=== PATIENT | male | born 1990 | race Two or more races ===

== ENCOUNTER → 2018-10-14 08:50 | Outpatient (CLI) | payer OTHER, SELFPAY ==
[2018-10-14 08:38] VITALS: BMI 21.2
--- NOTE | 2018-10-14 08:55 | RAD_ITS ---
STUDY: X-RAY CHEST REASON FOR EXAM: Male, 28 years old. Chest congestion and cough. Fever. TECHNIQUE: PA and lateral views of the chest. COMPARISON: None. FINDINGS: The lungs are clear and expanded. Scattered calcified granulomas. There is no demonstrated pleural abnormality. Normal size heart. Normal mediastinum and uday. Normal visualized pulmonary arteries. Normal visualized aortic arch and descending thoracic aorta. Normal visualized thoracic spine. Normal visualized ribs, clavicles, and shoulders. There is no demonstrated abnormality of the visualized soft tissue structures of the upper abdomen. RAD/Chest PA and Lateral IMPRESSION: Normal x-ray examination of the chest. Electronically Signed: Fabian Giles MD at 10:19 EST Tel [phone], Service support ,
== END ==
PROVIDERS: Family Provider Family Medicine; PCP Family Medicine; Referring Provider Physician Assistant Surgical; Visit Provider Physician Assistant Surgical
DX: J20.9 Acute bronchitis, unspecified (principal)
CPT/HCPCS: 71046

== ENCOUNTER 2018-10-30 18:30 | Outpatient (RCR) | payer OTHER, SELFPAY ==
--- NOTE | 2018-09-11 18:37 | HP.PTEVAL_ITS ---
Patient's Visit Information FREDY NIÑO is a 28 year old M referred to Physical Therapy by Jamil Beard with a diagnosis of Foot pain. Date of Evaluation: 09/11/18 Physical Therapist: Star Denton DPT, OC - Visit Plan Frequency: one more visit Plan: call when orthotics in and fit to shoe and educate in use. - Subjective Subjective: Foot pain after on feet all day at work. Heel and metatarsal. Pain gets to 5/10. Goes away within the evening. Has high arches. 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 - Pain B heel pain Pain Intensity (Out of 10): 0 Pain Intensity Range: 0, 6 - Objective Pes cavus B in standing, no LLD. No other biomechanical abnormalities in foot. AROM ankles full and without pain. Strength 5/5 in DF and PF. Walks normal and without antalgia today. - Goals Goal 1:: fit for and I in the use of custom orthotics. Goal Time Frame: 2-4 Weeks - Rehabilitation Potential Physical Therapy Diagnosis: foot pain, hypersupinated forefoot. Rehabilitation Potential: Good - Anticipated Interventions Patient/Client Instruction: Educate patient on: Condition Comments: orthotics. For the Purpose of:: To decrease pain Orthotics: Shoe insert For the Purpose of:: To decrease pain Thank you for the opportunity to evaluate your patient. For Medicare and Medicare HMO plans, please review the plan of care and approve it. It will need to be FAXED BACK to us at [phone] for Medicare purposes. Please let me know if there are questions or concerns regarding this plan of care. Physician Signature: Date:
--- NOTE | 2018-10-30 18:12 | HP.PTDCSUM ---
HP - PT D/C Summary It has been my pleasure to treat FREDY NIÑO under orders from Jamil Beard, for the diagnosis of Foot pain for a total of 1 visit(s). Discharge Date: 10/30/18 Please see the following information for a summary of their discharge status. - Pain B heel pain Pain Intensity (Out of 10): 0 - Goals Goal 1:: fit for and I in the use of custom orthotics. Goal Progress: Goal Met - Plan Plan: call when orthotics in and fit to shoe and educate in use. - D/C Information Discharge Comments: Got orthotics and will call if problems or concerns. If there are questions or concerns regarding this patient's physical therapy, please feel free to call me at [phone]. Thank you for the referral of this patient. Sincerely, Star Denton, DPT, OC
== END 2018-10-30 19:00 | disposition home or self-care (01) ==
LOC: PT 18:30
PROVIDERS: Family Provider Family Medicine; PCP Family Medicine; Visit Provider Family Medicine
DX: M79.673 Pain in unspecified foot (principal); M21.6X9 Other acquired deformities of unspecified foot
CPT/HCPCS: 97161; 97760

== ENCOUNTER → 2020-05-09 | Outpatient (CLI) | payer OTHER, SELFPAY ==
[2019-03-19 13:21] VITALS: BMI 21.2
[2020-05-09 17:11] LABS: NATERA MAILED SPECIMEN
== END | disposition home or self-care (01) ==
LOC: LABSPEC 16:08
PROVIDERS: PCP Family Medicine; Referring Provider Obstetrics & Gynecology; Visit Provider Obstetrics & Gynecology
DX: Z31.440 Encounter of male for testing for genetic disease carrier status for procreative management (principal)
CPT/HCPCS: 36415

== ENCOUNTER 2020-10-27 14:46 | Outpatient (RCR) | payer OTHER, SELFPAY ==
[2019-03-19 13:21] VITALS: BMI 21.2
== END 2020-11-24 23:59 ==
LOC: EMPH 14:46
PROVIDERS: PCP Family Medicine; Visit Provider Family Medicine Geriatric Medicine
DX: Z03.818 Encounter for observation for suspected exposure to other biological agents ruled out (principal)
CPT/HCPCS: 87426

== ENCOUNTER → 2021-07-27 18:45 | Outpatient (CLI) | payer BC, SELFPAY ==
--- NOTE | 2021-07-27 19:00 | RAD_ITS ---
STUDY: X-RAY - RIGHT ELBOW REASON FOR EXAM: Male, 31 years old. pain unspecified injury to right elbow. generalized pain and swelling. TECHNIQUE: 3 view(s) of the elbow. COMPARISON: None. FINDINGS: Normal visualized humerus, radius and ulna. Normal radiocapitellar and ulnotrochlear articulations. Appearance of mild soft tissue swelling in the posterior and distal aspect of the upper arm. There is no demonstrated fracture. RAD/Elbow min 3 Views IMPRESSION: 1. Appearance of mild soft tissue swelling in the posterior and distal aspect of the upper arm. Electronically Signed: Valentino Saba MD at 20:26 EDT , Service support ,
== END ==
PROVIDERS: PCP Family Medicine; Visit Provider Physician Assistant
DX: S59.901A Unspecified injury of right elbow, initial encounter (principal)
CPT/HCPCS: 73080

== ENCOUNTER → 2023-05-17 | Outpatient (CLI) | payer BC, SELFPAY ==
--- NOTE | 2023-05-17 18:15 | US_ITS ---
We are attempting to reach an attending provider to discuss findings. An addendum with communication details will be sent when the communication is complete. INDICATION: LT LUMP EXAMINATION: Ultrasound US Scrotum (Contents) TECHNIQUE: Realtime ultrasound of the testicles was performed with grayscale, Color Doppler and spectral Doppler analysis. COMPARISON: FINDINGS: RIGHT: TESTIS: 4.8 x 2.9 x 1.9 cm. Normal in size and echotexture, without focal lesion. COLOR DOPPLER: Normal Doppler flow within the right testicle. EPIDIDYMIS: Normal in size and echotexture, without focal lesion. [Normal color Doppler flow pattern in the epididymis. HYDROCELE: Minimal, with a thin internal septation. VARICOCELE: Mild right varicocele. LEFT: TESTIS: 4.7 x 3.7 x 2.3 cm. Left testicle contains a rounded complex though primarily solid mass which shows internal blood flow and with surrounding hyperemia; this left intratesticular mass measures 2.7 x 3.4 x 2.2 cm. COLOR DOPPLER: Doppler flow is present within the left testicle, without evidence for torsion. EPIDIDYMIS: Normal in size and echotexture, without focal lesion. [Normal color Doppler flow pattern in the epididymis. HYDROCELE: Small VARICOCELE: Present. US/Testicular with Arterial Flow IMPRESSION: 3.4 cm solid mass within the left testicle, highly suspicious for testicular neoplasm. No findings of testicular torsion or acute epididymitis. Nonstandard communication protocol initiated. Electronically Signed: Jaiden Evans MD at 19:11 EDT ,
== END | disposition home or self-care (01) ==
PROVIDERS: PCP Family Medicine; Referring Provider Family Medicine; Visit Provider Family Medicine
DX: N50.89 Other specified disorders of the male genital organs (principal)
CPT/HCPCS: 76870; 93976

== ENCOUNTER → 2023-05-21 | Outpatient (CLI) | payer BC, SELFPAY ==
[2023-05-21 09:18] LABS: Absolute Lymphocyte Count 1.59 X10^3/uL (0.83-4.51); Absolute Neutrophil Count 3.3 X10^3/uL (2.0-7.7); Basophil# 0.09 X10^3/uL; Basophil% 1.6 % (0-1); Eosinophil# 0.21 X10^3/uL; Eosinophils% 3.7 % (0-5); Hematocrit 43.3 % (40-54); Hemoglobin 14.9 g/dL (13.0-16.5); Lymphocyte # 1.59 X10^3/ul (0.83-4.51); Mean Corp Hgb Conc 34.4 g/dL (32-36); Mean Corpuscular Hgb 30.4 pg (27.0-32.0); Mean Corpuscular Volume 88.4 fL (80-94); Mean Platelet Vol. 9.5 fl (6.2-12.0); Monocyte# 0.48 X10^3/uL; Monocyte% 8.5 % (0-10); NRBC Flagged by Analyzer 0 % (0-5); Neutrophil # 3.29 X10^3/uL (2.7-7.7); Platelet Count 309 K/mm3 (150-450); RBC Distribution Width CV 11.8 % (11.6-14.6); RBC Distribution Width SD 37.5 fl (35.1-43.9); White Blood Count 5.7 K/mm3 (4.4-11.0)
[2023-05-21 09:49] LABS: Anion Gap 6 (5-15); BUN 14 mg/dL (7-18); BUN/Creat Ratio 13.1 RATIO (10-20); Calcium,Total 8.7 mg/dL (8.5-10.1); Chloride 108 mmol/L (98-107); Creatinine, Serum 1.07 mg/dL (0.70-1.30); EST Glomerular Filtration Rate 86 mL/min (>60); Est Glom Filt Rate - Afr Amer 104 mL/min (>60); Glucose 144 mg/dL (74-106); LDH 279 U/L (87-241); Sodium Level 139 mmol/L (136-145)
[2023-05-22 04:45] LABS: HCG BETA-SUBUNIT QUANT. 15 mIU/mL (0-3)
== END | disposition home or self-care (01) ==
LOC: LAB 08:43
PROVIDERS: PCP Family Medicine; Referring Provider Urology; Visit Provider Urology
DX: C62.12 Malignant neoplasm of descended left testis (principal)
CPT/HCPCS: 36415; 80048; 82105; 83615; 84702; 85025

== ENCOUNTER → 2023-05-24 | Outpatient (CLI) | payer BC, SELFPAY ==
--- NOTE | 2023-05-24 | TEST_PTH ---
PATIENT: FREDY NIÑO LOC: [facility] U#:[id number] AGE/SX: 33/M ROOM: RE05/24/[address]: Dr. Korey Espinoza MD : 1990 BED: DIS: 05/24/2023 SPEC #: [id number] RECD: 05/27/23 12:52 STATUS: SANDRA REQ #: [id number] SHEREEN: 05/24/23 00:[address]: Korey Espinoza DEPT: SURGICAL PATHOLOGY RECD BY: Don Montanez ENTERED: 05/27/23 12:52 SP TYPE: TESTICLE OTHR DR: Dr. 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 See cancer summary in the comment section. SJ: 06/04/2023 COMMENT TESTIS - RADICAL ORCHIECTOMY CANCER SUMMARY: Specimen type - radical orchiectomy Specimen laterality - left. Tumor focality - uniffocal Tumor Size - 3.5 x 3.5 x 3.0 cm Additional tumor nodules - not identified. Histologic type - non-seminonatous type- Mixed germ cell tumor Embryonal carcinoma - 60% Yolk sac tumor - 30% Teratoma 10%. Tumor extension - tumor limited to testis Margins: Spermatic cord margin - free of tumor Other margins - uninvolved by tumor Lymphvascular invasion - not identified. Regional lymph nodes: No lymph nodes submitted or found. Distant metastasis - not applicable. Serum tumor markers: AFP - 197 (N- 0.0 to 6.9ng/ml) HCG - 15 (N - 0-3 mIU/ml) LDH - 279 (N - 87-241 U/L) Additional pathologic findings - focal atrophy seminiferous tubules. PATHOLOGIC STAGE: pT1b Nx Mx S1 The above summary is in compliance with [employer] (CAP) Cancer Protocols Checklist and [place] Joint Committee on Cancer (AJCC), Staging Manual, 8th Ed. The specimen sent to [facility] for expert opinion and reviewed by Dr. Seo and above diagnosis is rendered. The complete report is viewable in patient's EMR. Case has been reviewed in consultation with Dr. Mendez who concurs with the above diagnosis. IDC:AM MICROSCOPIC DESCRIPTION Slides are reviewed. GROSS DESCRIPTION Received in fixative is one container labeled with the patient's name and designated left testicle. The specimen consists a radical orchiectomy specimen weighing 71 gm. The testicle measures 8.0 x 5.0 x 4.0 cm. Attached spermatic cord measures 3.5 cm in length and up to 2.0 cm in diameter. The external surface is inked black. Sections of the testicle reveal a round, woods, focally hemorrhagic mass measuring 3.5 x 3.5 x 3.0 cm. The mass appears to be confined to testicle. Invasion through the tunica vaginalis or albuginea is not seen. School Photographer sections are submitted as follows: 1 - resection margin of spermatic cord, 2 & 3 - more sections of spermatic cord. More sections will be submitted after additional fixation. / FLORIN:rick 05/27/2023 Additional sales representative aircraft sections are submitted as follows: 4-9 - tumor (cassette 4 also contains the tunica vaginalis and tunica albuginea, 8 also contains adjacent epididymis, 9 contains tumor adjacent testicular tissue), 10 - uninvolved testicular tissue. / FLORIN:rick 05/29/2023 TC:0 CPT:85078
== END | disposition home or self-care (01) ==
LOC: LABSPEC 16:04
PROVIDERS: PCP Family Medicine; Referring Provider Urology; Visit Provider Urology
DX: Z30.2 Encounter for sterilization (principal)
CPT/HCPCS: 88309

== ENCOUNTER → 2023-06-05 | Outpatient (CLI) | payer BC, SELFPAY ==
--- NOTE | 2023-06-05 18:35 | CT_ITS ---
STUDY: CT CHEST, ABDOMEN T PELVIS WITH CONTRAST REASON FOR EXAM: Male, 33 years old. MALIGNANT NEOPLASM OF LT TESTES. The patient is status post left orchiectomy. RADIATION DOSAGE (If Supplied By Facility): CTDIvol = ( 13.90 ) mGy, DLP = ( 1461.36 ) mGycm TECHNIQUE: Transaxial imaging was performed following intravenous administration of Oral and amp; IV Readi-CAT and amp; 100mL Isovue-370. Multiplanar coronal and sagittal images were reformatted. Individualized dose optimization techniques were used for this CT. COMPARISON: No relevant priors. FINDINGS: CHEST Small benign appearing bilateral axillary lymph nodes. 4 mm noncalcified nodule in the right lower lobe adjacent to the right hemidiaphragm as seen on axial image #95. There is no demonstrated pleural abnormality. Normal heart and pericardium. Normal mediastinum. Normal hilar regions. Normal unenhanced pulmonary arteries. Normal aorta arch and descending thoracic aorta. Normal osseous structures. There is no demonstrated abnormality of the visualized upper abdomen. ABDOMEN Normal liver. Normal gallbladder and extrahepatic biliary system. Normal spleen. Normal pancreas. Normal bilateral adrenal glands. Normal right kidney. Normal left kidney. Normal visualized stomach. Normal small intestine. Normal colon. The appendix is visualized and appears normal. Small lymph nodes are seen in the mesenteric fat in the right lower quadrant suggestive for mesenteric adenitis. Normal abdominal aorta. Normal inferior vena cava. There is a 1.8 cm by 2.2 cm well-defined rounded hypodense nodule in the left retroperitoneum adjacent to the aorta just distal to the left renal hilum. This most likely represents a lymph node. There is a small umbilical hernia containing fat. Normal osseous structures. PELVIS Normal urinary bladder. Normal visualized small intestine. Normal visualized colon. There is no pelvic fluid. There is no pelvic lymphadenopathy or mass lesion. Normal visualized pelvic arteries. Normal abdominal wall. Normal osseous structures. CT/CT Chest, Abd, Pel w/Contrast IMPRESSION: 4 mm noncalcified nodule in the right lower lobe adjacent to the right hemidiaphragm and adjacent axial images #95. Twelve-month follow-up examinations recommended. 1.8 cm x 2.2 cm well-defined rounded hypodense lung in the left retroperitoneum adjacent to the left side of the aorta just distal to the left renal hilus. This may represent a small lymph node. Electronically Signed: Fabian Giles MD at 8:55 EDT ,
== END | disposition home or self-care (01) ==
LOC: CT 18:32
PROVIDERS: PCP Family Medicine; Referring Provider Family Medicine; Visit Provider Family Medicine
DX: C62.92 Malignant neoplasm of left testis, unspecified whether descended or undescended (principal)
CPT/HCPCS: 71260; 74177; Q9967

== ENCOUNTER 2023-06-14 09:24 | Day surgery (SDC) | payer BC, SELFPAY ==
[2023-06-14] VITALS (7 sets, daily range): BP systolic 87–120; BP diastolic 59–74; PULSE 62–79; RESP 14–18; TEMP 36.1–36.4; O2SAT 94–100; BMI 25.2
--- NOTE | 2023-06-14 09:54 | PCM.HP.BLA ---
History and Physical Date of Admission: 06/14/23 Date of Service: 06/13/23 MR#: [id number] Acct: [id number] Name: FREDY NIÑO Rep #: [id number] : 1990 Provider: Dr. 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 Complaint: Port Placement Director Pharmacovigilance Required: No Accompanied by: Is patient in pain?: No Allergies No Known Allergies Allergy (Verified 06/13/23 10:16) Medications escitalopram oxalate 20 mg tablet 20 mg PO DAILY 06/06/23 [History Confirmed 06/13/23] PFSH Medical History Alcohol use Anxiety Cancer Cellulitis of right elbow Heartburn Injury of right elbow Left testicular cancer, primary Lung nodule Non-smoker Regional lymph node metastasis present Restless legs Surgical History History of repair of ACL History of tonsillectomy and adenoidectomy Hx of removal of testicle Family History Father Arthritis HypertensionMother Thyroid disorder Social History Smoking Status: Never smoker alcohol intake: never HPI HPI HPI: 33-year-old male who presents for port placement due to testicular cancer with regional lymph node metastasis. Patient is planning to start chemotherapy . ROS General General: No weight change, appetite, fatigue, colon cancer, breast cancer or weakness HEENT HEENT: No difficulty swallowing, eye injury, eye surgery, swollen glands or hoarseness Endo Endocrine: No thyroid disease, diabetes mellitus, thyroid cancer, Hair loss, heat intolerance or cold intolerance Skin Skin: No rash or changing moles Breast Breast: No left breast lump, right breast lump, nipple discharge, breast pain, abnormal mammogram, abnormal US or breast enlargement Musc Musculoskeletal: No back problems, arthritis, rheumatoid arthritis, gout or joint pain Cardio Cardiovascular: No murmur, pacemaker, heart disease, atrial fibrillation, high blood pressure, heart attack, heart stent, palpitations, shortness of breat with exertion or chest pain Psych Psychiatric: Yes anxiety; No depression or hearing voices Resp Respiratory: No shortness of breath, No sleep apnea, No cough, No COPD, No asthma, No emphysema and No wheezing Gastro Gastrointestinal: No abdominal pain, No nausea or vomiting, No diarrhea, No constipation, No blood in stool, Yes acid reflux, No hemorrhoids, No ulcers, No gallbladder problem and No black,tarry stools Braulio Hematologic: No blood thinners, No blood disorders, No bleeding, No anemia and No blood clots Neuro Neurologic: No system reviewed and no additional complaints, except as documented, No as per HPI, No abnormal gait, No abnormal hearing, No abnormal movements, No abnormal speech, No behavioral changes, No burning sensations, No confusion, No convulsions, No disequilibrium, No dizziness, No localized weakness, No frequent falls, No headache(s), No lack of coordination, No loss of vision, No memory loss, No numbness, No other visual disturbances, No radicular pain, No restless legs, No sensory deficit, No syncope, No tingling, No tremor(s), No weakness and No other Exam Const General: cooperative, healthy appearing, comfortable and no acute distress [facility] Head: normocephalic and atraumatic Neck Neck: supple Chest Other: Palpation bilateral upper chest normal Resp Effort & Inspection: normal respiratory effort Cardio Rate: regular rate Skin General: no rashes or lesions noted Neuro General: CN's II-XI intact bilaterally Extrem General: normal to inspection Psych Mental Status: mental status grossly normal Attitude: cooperative Assessment and Plan Assessment and Plan (1) Encounter for insertion of venous access port: Status: Acute (2) Left testicular cancer, primary: Status: Acute (3) Regional lymph node metastasis present: Status: Acute Plan I have discussed above with the patient- Port-a-Cath placement. Right possible left Patient has been counseled as to the risks/benefits of the procedure. I have explained the risks of the surgery, including but not limited to: infection, bleeding, injury to any blood vessels/nerves, injury to lungs (such as pneumothorax or hemothorax and need for chest tube), not having any access, nonfunctioning of port due to thrombosis, infection of port, etc. the patient understands and agrees to proceed. I have answered all the patient's questions to the patient?s satisfaction and the patient has no further questions. Lynda Garcia M.D. Pager: [phone] [facility] [address] [place] [address], [address] [place] [address] Office: [phone] Coding Level of Care Code Off vis,new,level 3 Diagnoses Encounter for insertion of venous access port Z45.2 Left testicular cancer, primary C62.92 Regional lymph node metastasis present C77.9 06/13/23 1051 <Electronically signed by Lynda Garcia MD> Date Lynda Garcia MD
[2023-06-14] MEDS: Lactated Ringers 1,000 ML 15 ML IV (10:09)
[2023-06-14] MEDS: Cefazolin 2 GM in 0.9% Normal Saline 100 ML IV (10:59)
[2023-06-14] MEDS: Bupivacaine Mpf 0.5% 30 ML VIAL (11:09)
[2023-06-14] MEDS: Lidocaine 1%/Epi 1:100 (30ml) 30 ML VIAL (11:09)
--- NOTE | 2023-06-14 11:31 | RAD_ITS ---
HISTORY: port -- pacu. TECHNIQUE: XR Chest 1 View. COMPARISON: CT 06/05/2023. FINDINGS: CARDIOMEDIASTINAL BORDERS: Cardiac silhouette within normal limits in size. Mediastinal contour unremarkable. Interval placement of right chest wall port with catheter tip in the upper right atrium LUNGS: Radiographically clear. PLEURA: No pleural effusion or pneumothorax seen. OSSEOUS STRUCTURES: Unremarkable. RAD/Chest 1 View (Portable) IMPRESSION: No acute cardiopulmonary process identified. Satisfactory appearance of right chest wall port. Electronically Signed: Patricia Dickens MD at 12:50 EDT ,
--- NOTE | 2023-06-14 11:31 | PCM.OPRPT ---
Report of Operation Date of Procedure: 06/14/23 Pre-Operative Diagnosis: Z45.2, testicular cancer Post-Operative Diagnosis: Same Surgery/Procedure Performed:: 1. Placement of right IJ Port-A-Cath 2. Use of ultrasound 3. Use of fluoroscopy Surgeon: Lynda Garcia Type of Anesthesia: Local MAC Anesthesiologist: Corwin Justin Special Medications: Ancef 2 g IV x1 Estimated Blood Loss (mL): < 10 cc Description of Procedure: After informed consent was given, the patient was brought to the operating room and placed in the supine position. Appropriate time out protocol was followed. Patient was then given IV conscious sedation for anesthesia. The patient's right upper chest and neck were then prepped with a surgical skin preparation and sterile surgical drapes were placed. After proper landmarks were ascertained, the skin at the upper right chest area was then infiltrated with 1:1 mixture of 1% lidocaine with epinephrine and 0.5% marcaine. A needle trocar was then inserted into the right internal jugular vein with ultrasound guidance-multiple vessels were viewed with u/s and the right IJ was chosen-- and there was good aspiration of venous blood. A wire was then threaded into the needle trocar and this was visualized under fluoroscopy to ensure that the wire was in the superior vena cava. Once this was done, then the needle trocar was removed. A small skin yessenia was made with an 11 blade knife at the wire entrance site. The dilator with the introducer sheath attached was then placed over the wire into the right internal jugular vein via the Seldinger technique and this was visualized under fluoroscopy. The dilator and sheath were in proper position as visualized by fluoroscopy. A subcutaneous pocket was then created caudad to the catheter insertion site. A transverse skin incision was made after the skin and subcutaneous tissues were infiltrated with local anesthetic. Blunt dissection was then used to create a space large enough for placement of the subcutaneous port. The catheter was then tunneled into the subcutaneous pocket. The wire and dilator were then removed. The catheter was then threaded into the introducer sheath and was positioned with its tip at the junction of the superior vena cava and the right atrium as visualized under fluoroscopy. The excess catheter was transected. The catheter was then attached to the subcutaneous port using manufacturers guidelines. The catheter was flushed with a heparin saline mixture prior to placement. Hemostasis was carefully controlled with electrocautery. The port was sutured to the subcutaneous fascia using 2-0 Vicryl suture at two sites. The port was then placed in the subcutaneous pocket. The incision were reapproximated with interrupted subdermal 3-0 vicryl sutures. The skin was reapproximated with 3-0 nylon suture in a interrupted fashion. Steristrips were used for reinforcement of the skin closure at IJ insertion site and a sterile opsite dressings were applied. The patient tolerated the procedure well. Grafts/Implants Used: Bard PowerPort isp M.R.I. 6Fr Lot [id number]
--- NOTE | 2023-06-14 11:33 | EX.PCM.DISCH ---
Discharge Instructions Procedure Port-A-Cath Diet Discharge Diet: Light diet - advance as tolerated Activity May shower in (days): 5 (Keep port site clean and dry x5 days. Neck incision okay to get wet after 1 day. Okay to lower shower and upper sponge bath. OR okay to taper off port site with a Ziploc bag to shower) Lifting Restrictions: No lifting > 15 pounds for 3 days with the arm on the side of the port Dressing / Incision Call your doctor if your incision/area has: Continuous Slow Oozing, Sudden Increased Bleeding, Increased Pain/ Swelling, Increased Redness, Foul Smelling Discharge and Swelling at the incision site Call your doctor if you observe: Fever of 101 or Higher Change Dressing in: 2 days (2-3 days- port site; ok to remove neck opsite in 1 day) Follow Up Care Please Follow Up With: Lynda Garcia MD When: In 10 days for permanent suture removal?call office for appointment Test Results: Test results from this visit will be discussed in further detail at your follow-up appointment, if applicable. Discharge Plan Admission Attending Provider: Lynda Garcia Primary Care Provider: Luis Eduardo Rivas Discharge Orders/Prescriptions Prescriptions: New oxycodone-acetaminophen 5-325 mg tablet 1 tab PO Q6H PRN (Reason: pain) 2 Days Qty: 3 0RF Continued escitalopram oxalate 20 mg tablet 20 mg PO DAILY Referrals / Follow Up: Luis Eduardo Rivas DO [Primary Care Provider] - Disposition Disposition (needs filled in before D/C Order can be placed): Home, Self Care
--- NOTE | 2023-06-14 12:54 | SUR.PHASEII ---
paged dr. siddiqi; extended wait time for xray report. awaiting page back
== END 2023-06-14 12:59 | disposition home or self-care (01) ==
LOC: SDC 09:25 → AC 09:26
PROVIDERS: PCP Family Medicine; Referring Provider Surgery; Visit Provider Surgery
PROC: (CPT 36561; principal; 2023-06-14 10:45)
DX: Z45.2 Encounter for adjustment and management of vascular access device (principal); C77.9 Secondary and unspecified malignant neoplasm of lymph node, unspecified; C62.92 Malignant neoplasm of left testis, unspecified whether descended or undescended
CPT/HCPCS: 36561; 71045; 77001; J7120; J2405

== ENCOUNTER 2023-06-25 18:07 | Outpatient (CLI) | payer BC, SELFPAY ==
--- NOTE | 2023-06-25 18:11 | US_ITS ---
INDICATION: RT NODULE- sup to testicle EXAMINATION: US Scrotum (Contents) TECHNIQUE: Realtime ultrasound of the testicles was performed with grayscale, Color Doppler and spectral Doppler analysis. COMPARISON: None. FINDINGS: RIGHT: TESTIS: Measures 4.8 x 2.9 x 1.7 cm. Normal in size and echotexture, without focal lesion. COLOR DOPPLER: Normal arterial flow present in the testicle with monophasic waveforms. EPIDIDYMIS: Normal in size and echotexture, without focal lesion. [Normal color Doppler flow pattern in the epididymis. HYDROCELE: Small. VARICOCELE: None. OTHER: Superior to the right testicle at area of palpable concern there is a 0.7 x 0.8 x 0.4 cm hypoechoic and slightly heterogeneous solid lesion. No posterior acoustic enhancement or shadowing. No definite internal vascularity. LEFT: Surgically absent. US/Testicular with Arterial Flow IMPRESSION: 8mm hypoechoic and slightly heterogeneous lesion superior to the right testicle is indeterminate. One possible etiology is a lymph node. Recommend PET-CT for further evaluation. Electronically Signed: Abelardo Beasley MD at 19:17 EDT ,
== END 2023-06-25 23:59 | disposition home or self-care (01) ==
PROVIDERS: PCP Family Medicine; Visit Provider Internal Medicine Hematology & Oncology
DX: N50.89 Other specified disorders of the male genital organs (principal); C77.9 Secondary and unspecified malignant neoplasm of lymph node, unspecified; C62.92 Malignant neoplasm of left testis, unspecified whether descended or undescended; R91.1 Solitary pulmonary nodule
CPT/HCPCS: 76870; 93976; 96367; 96375; 96413; 96417; J7030; J7040; J7050; J1940; J3490; J9060; J9181

== ENCOUNTER → 2023-09-26 | Outpatient (CLI) | payer BC, SELFPAY ==
--- NOTE | 2023-09-26 08:16 | CT_ITS ---
STUDY: CT CHEST, ABDOMEN T PELVIS WITH CONTRAST REASON FOR EXAM: Male, 33 years old. F/U TESTICULAR CA RLL NODULE IV CONT ONLY RADIATION DOSAGE (If Supplied By Facility): CTDIvol = ( 15.76 ) mGy, DLP = ( 1570.73 ) mGycm TECHNIQUE: Transaxial imaging was performed following intravenous administration of IV 100mL Isovue-370. Individualized dose optimization techniques were used for this CT. COMPARISON: Comparison is made with prior examination dated June 05, 2023. FINDINGS: CHEST A right-sided portacatheter is seen with the tip in the superior vena cava. The previously seen 4 mm nodule seen along the posterior right hemidiaphragm presently measures 2 mm. This is seen on axial image #108. There is no demonstrated pleural abnormality. Normal heart and pericardium. Normal mediastinum. Normal hilar regions. Normal unenhanced pulmonary arteries. Normal aorta arch and descending thoracic aorta. Normal osseous structures. ABDOMEN Normal liver. Normal gallbladder and extrahepatic biliary system. Normal spleen. Normal pancreas. Normal bilateral adrenal glands. Normal right kidney. Normal left kidney. Normal visualized stomach. Normal small intestine. Normal colon. The appendix is visualized and appears normal. Normal abdominal aorta. Normal inferior vena cava. The previously seen 1.8 cm x 2.2 cm well-defined rounded hypodensity in the left retroperitoneum adjacent to the aorta has cleared. There is a small umbilical hernia containing fat. Normal osseous structures. PELVIS Normal urinary bladder. Normal visualized small intestine. Normal visualized colon. There is no pelvic fluid. There is no pelvic lymphadenopathy or mass lesion. Normal visualized pelvic arteries. Normal abdominal wall. Normal osseous structures. CT/CT Chest, Abd, Pel w/Contrast IMPRESSION: The previously seen well-defined nodule in the left retroperitoneum has resolved. 2 mm noncalcified nodule adjacent to the right hemidiaphragm. Electronically Signed: Fabian Giles MD at 10:21 EDT ,
[2023-09-26] MEDS: 0.9 % NaCl (Sterile) Posiflush 10 mL IV (08:40)
== END | disposition home or self-care (01) ==
PROVIDERS: PCP Family Medicine; Referring Provider Internal Medicine Hematology & Oncology; Visit Provider Internal Medicine Hematology & Oncology
DX: C62.92 Malignant neoplasm of left testis, unspecified whether descended or undescended (principal); C77.9 Secondary and unspecified malignant neoplasm of lymph node, unspecified; R91.1 Solitary pulmonary nodule
CPT/HCPCS: 71260; 74177; Q9967; A4216

== ENCOUNTER → 2024-01-30 | Outpatient (CLI) | payer OTHER, SELFPAY ==
--- NOTE | 2024-01-30 18:01 | CT_ITS ---
HISTORY: F/U METS TESTICULAR CA/RLL NODULE IV CONT ONLY. TECHNIQUE: Helically acquired images were obtained of the chest, abdomen, and pelvis after the intravenous administration of 100mL Isovue-300. No oral contrast was administered. 2-D reformatted images provided. A radiation dose optimization technique was used for this scan. 1321 images. COMPARISON: 09/26/2023, 06/05/2023. FINDINGS: ----Chest: LARGE AIRWAYS: Patent. LUNGS: Stable 6 mm nodule or scar in the right middle lobe laterally. Stable 3 mm triangular juxtapleural nodule in the right lower lobe near the diaphragm. No new suspicious nodule or acute alveolar consolidation. PLEURA: No pneumothorax or significant pleural effusion. HEART AND PERICARDIUM: Heart within normal limits in size. No significant pericardial effusion. VESSELS: No thoracic aortic aneurysm or dissection flap.Right chest wall port removed. MEDIASTINUM AND LAURA: No pathologically enlarged lymph nodes. BONES: Intact without suspicious osteoblastic or osteolytic lesion. ----Abdomen/Pelvis: BOWEL: Bowel including appendix nondilated. Moderate stool in the colon. PERITONEUM: No significant ascites or pathologically enlarged nodes. LIVER: No enhancing mass. GALLBLADDER/BILIARY TREE: Gallbladder present. SPLEEN/PANCREAS/ADRENAL GLANDS: Homogeneous and nonenlarged. KIDNEYS: Normal enhancement. No hydronephrosis. VESSELS: Abdominal aorta nondilated. PELVIC ORGANS: Unremarkable. No pathologically enlarged retroperitoneal or pelvic lymphadenopathy. Left orchiectomy. BONES: Intact without osteolytic or osteoblastic metastasis. CT/CT Chest, Abd, Pel w/Contrast IMPRESSION: No significant interval change in size of small pulmonary nodules or scars in the right lung base. No evidence for metastatic disease progression in the chest. No evidence for metastatic disease in the abdomen or pelvis. No acute abnormality identified. Electronically Signed: Patricia Dickens MD at 15:17 EST ,
--- OUTSIDE RECORDS SUMMARY | 2024-01-30 21:00 | XMS RPT_ITS | CCD ---
Author Name Unknown Address [address] [place] [address] [address] [place] [id number] Organization [facility] Care Team Providers [employer] Name Role Phone Unavailable Primary Care Provider Unavailabl e Results Test Name Value Interpretation Reference Range Facil ity Encounters Encounter Date Encounter Type Care Provider Facility Start: 06-30-2012 End: 06-30-2012 Patient encounter procedure Erik Cárdenas Work Phone: [facility] Start: 06-30-2012 Results Only Erik rodriges Work Phone: [facility] Procedures Date Procedure Procedure Detail Performing Clinician Start: 06-30-2012 CONVERTED SURGICAL PATHOLOGY Erik Cárdenas Work Phone: Social History Date Type Detail Facility Tobacco smoking status NHIS Unknown if ev er smoked [facility] Sex Assigned At Not on file [facility] Additional Source Comments Source Comments (unrecognize d section and content) In the event this informatio n is protected by the Federal Confidentiality of Alcohol and Drug Abuse Patient Records regulations: The Federal rules restrict any use of the information to criminally investigate or prosecute any alcohol or drug abuse patient.[facility] FOR RECORDS PERTAINING TO PATIENTS WHO ARE OR HAVE BEEN ENROLLED IN A CHEMICAL DEPENDENCY/SUBSTANCEABUSE PROGRAM, SOME INFORMATION MAY BE OMITTED. This clinical summary was aggregated from multiple sources. Caution should be exercised in using it in the provision of clinical care. This summary normalizes information from multiple sources, and as a consequence, information in this document may materially change the coding, format and clinical context of patient data. In addition, data may be omitted in some cases. CLINICAL DECISIONS SHOULD BE BASED ON THE PRIMARY CLINICAL RECORDS. [facility] [employer] [facility]. provides no warranty or guarantee of the accuracy or completeness of information in this document.
== END | disposition home or self-care (01) ==
PROVIDERS: PCP Family Medicine; Referring Provider Internal Medicine Hematology & Oncology; Visit Provider Internal Medicine Hematology & Oncology
DX: C77.9 Secondary and unspecified malignant neoplasm of lymph node, unspecified (principal); C62.92 Malignant neoplasm of left testis, unspecified whether descended or undescended; R91.1 Solitary pulmonary nodule
CPT/HCPCS: 71260; 74177; Q9967

== ENCOUNTER → 2024-07-28 | Outpatient (CLI) | payer OTHER, SELFPAY ==
--- NOTE | 2024-07-28 17:50 | CT_ITS ---
STUDY: CT CHEST, ABDOMEN T PELVIS WITH CONTRAST REASON FOR EXAM: Male, 34 years old. TESTICULAR CANCER SURVEILLANCE RADIATION DOSAGE (If Supplied By Facility): CTDIvol = ( 15.51 ) mGy, DLP = ( 1318.75 ) mGycm TECHNIQUE: Transaxial imaging was performed following intravenous administration of IV 100mL Isovue-370. Individualized dose optimization techniques were used for this CT. COMPARISON: 01/30/2024 FINDINGS: CHEST The lungs are normal. There is no demonstrated pleural abnormality. Normal heart and pericardium. Normal mediastinum. Normal hilar regions. Normal unenhanced pulmonary arteries. Normal aorta arch and descending thoracic aorta. Normal osseous structures. There is no demonstrated abnormality of the visualized upper abdomen. ABDOMEN The visualized lung bases are unremarkable. The visualized portions of the heart are within normal limits. Normal liver. Normal gallbladder and extrahepatic biliary system. Normal spleen. Normal pancreas. Normal bilateral adrenal glands. Normal right kidney. Normal left kidney. Normal visualized stomach. Normal small intestine. Normal colon. The appendix is visualized and appears normal. Normal abdominal aorta. Normal inferior vena cava. Normal retroperitoneum. Normal abdominal wall. Normal osseous structures. PELVIS Normal urinary bladder. Normal visualized small intestine. Normal visualized colon. There is no pelvic fluid. There is no pelvic lymphadenopathy or mass lesion. Normal visualized pelvic arteries. Normal abdominal wall. Normal osseous structures. CT/CT Chest, Abd, Pel w/Contrast IMPRESSION: Normal enhanced CT chest, abdomen T pelvis examination. No CT evidence of metastatic disease. Electronically Signed: Polo Carey MD at 13:36 EDT ,
== END | disposition home or self-care (01) ==
LOC: CT 17:48
PROVIDERS: PCP Family Medicine; Referring Provider Internal Medicine Hematology & Oncology; Visit Provider Internal Medicine Hematology & Oncology
DX: C62.92 Malignant neoplasm of left testis, unspecified whether descended or undescended (principal); C77.9 Secondary and unspecified malignant neoplasm of lymph node, unspecified
CPT/HCPCS: 71260; 74177; Q9967

== ENCOUNTER → 2025-01-28 | Outpatient (CLI) | payer OTHER, SELFPAY ==
--- NOTE | 2025-01-28 18:00 | CT_ITS ---
PROCEDURE: CT CHEST, ABD, PEL W/CONTRAST REASON FOR EXAM: Testicular carcinoma TECHNIQUE: Multiple contiguous axial images through the chest abdomen and pelvis were obtained after the administration of intravenous contrast. Two-dimensional coronal and sagittal reformatted images were reconstructed. Low-dose imaging technique was utilized. COMPARISON: 07/28/2024 FINDINGS: CT CHEST: Heart size is within normal limits. No significant pericardial effusion or coronary artery calcifications. Normal caliber thoracic aorta without dissection. Normal caliber pulmonary arteries without central filling defects. No suspicious mediastinal or hilar adenopathy. Gynecomastia. Central airways are patent. No focal consolidation, pleural effusion or pneumothorax. Subtle ground-glass reticulonodular opacities along the posterior left lower lobe. No suspicious solid pulmonary nodule or mass. No acute or suspicious osseous abnormality. CT ABDOMEN/PELVIS: Liver, spleen, and pancreas adrenal glands are intact. Gallbladder is satisfactory. No significant biliary ductal dilation. Kidneys enhance symmetrically. No suspicious renal mass, calculi or hydronephrosis. Urinary bladder is decompressed but grossly intact. No bowel obstruction, focal bowel wall thickening or significant perienteric inflammation. Normal appendix. No pelvic free fluid. No free air. No abdominal aortic aneurysm or suspicious adenopathy. Superficial soft tissues are within normal limits. No acute or suspicious osseous abnormality. CT/CT Chest, Abd, Pel w/Contrast IMPRESSION: No suspicious mass or adenopathy. One or more dose reduction techniques were used (e.g., Automated exposure contr ol, adjustment of the mA and/or kV according to patient size, use of iterative reconstruction technique). Reading Location: [facility]
== END | disposition home or self-care (01) ==
LOC: CT 17:58
PROVIDERS: PCP Family Medicine; Referring Provider Nurse Practitioner Family; Visit Provider Nurse Practitioner Family
DX: C62.92 Malignant neoplasm of left testis, unspecified whether descended or undescended (principal); C77.9 Secondary and unspecified malignant neoplasm of lymph node, unspecified; R91.1 Solitary pulmonary nodule
CPT/HCPCS: 71260; 74177; Q9967

== ENCOUNTER → 2025-07-29 | Outpatient (CLI) | payer OTHER, SELFPAY ==
--- NOTE | 2025-07-29 07:54 | CT_ITS ---
PROCEDURE: CT CHEST, ABD, PEL W/CONTRAST 07/29/2025 REASON FOR EXAM: F/U TESTICULAR CANCER IV CONTRAST ONLY Testicular cancer. TECHNIQUE: Chest, abdomen and pelvis CT with intravenous contrast. Coronal and Sagittal reconstruction series were provided. One or more dose reduction techniques were used (e.g., Automated exposure control, adjustment of the mA and/or kV according to patient size, use of iterative reconstruction technique. PATIENT PREPARATION: Per protocol ORAL CONTRAST TYPE: None. CONTRAST: Isovue 370 VOLUME: 97mL RADIATION DOSE SUMMARY: CTDlvol: 44 mGy DLP: 1660 mGycm COMPARISON: CT chest abdomen pelvis January 2025. FINDINGS: CHEST Thyroid gland: Negative. Lungs: Mild emphysematous changes. No pulmonary nodules or masses. Pleura: Negative for pleural effusion or pneumothorax. Airways: Imaged bronchi and trachea negative. Mediastinum: Negative for mediastinal mass. Lymph nodes: Negative for axillary, mediastinal or hilar adenopathy. Heart and Vasculature: Heart normal size. Negative for vascular calcifications of the thoracic aorta. Coronary Artery Calcifications: Negative for vascular calcifications of the coronary arteries Hardware: None. Bones and Soft Tissues: Mild gynecomastia on the left. Age-appropriate appearance the thoracic spine. No lytic or sclerotic lesions. ABDOMEN Liver: Negative. Biliary system: Negative. Negative for intrahepatic or extrahepatic ductal dilatation. Gallbladder: Negative. Negative for cholecystitis. Spleen: Negative. Pancreas: Negative. Adrenals: Negative. Kidneys: Negative. Negative for kidney stones, cysts or masses. Bowel: Negative for small or large-bowel obstruction. Appendix: Negative. Vasculature: Negative for atherosclerotic vascular calcifications of the abdominal aorta and its branches. Peritoneum / Retroperitoneum: Negative. PELVIS Lymph nodes: Negative for inguinal or iliac adenopathy. Bladder: Negative for98 Reproductive Organs: Probable left orchiectomy. Prostate normal for age. Bones and Soft Tissues: No degenerative changes. No lytic or sclerotic lesions. CT/CT Chest, Abd, Pel w/Contrast IMPRESSION: Negative for evidence of residual recurrent neoplasm of the chest abdomen or pe lvis. Reading Location: [id number]
== END | disposition home or self-care (01) ==
LOC: CT 07:53
PROVIDERS: PCP Family Medicine; Referring Provider Internal Medicine Hematology & Oncology; Visit Provider Internal Medicine Hematology & Oncology
DX: C62.92 Malignant neoplasm of left testis, unspecified whether descended or undescended (principal); C77.9 Secondary and unspecified malignant neoplasm of lymph node, unspecified
CPT/HCPCS: 71260; 74177; Q9967